=== PATIENT | female | born 1985 | race Asian ===

== ENCOUNTER 2017-11-12 22:12 | Emergency (ER) | payer MEDICAID ==
[2017-11-12 23:03] LABS: BILIRUBIN,URINE NEGATIVE (NEGATIVE); GLUCOSE, URINE (UA) NEGATIVE (NEGATIVE); KETONES,URINE (UA) NEGATIVE (NEGATIVE); LEUKOCYTE ESTERASE, URINE NEGATIVE (NEGATIVE); NITRITE,URINE NEGATIVE (NEGATIVE); OCCULT BLOOD,URINE TRACE-INTA (NEGATIVE); PH,URINE 6.5 PH (5.0-7.5); PROTEIN,URINE NEGATIVE (NEGATIVE); UROBILINOGEN,URINE 0.2 (NORMAL) E.U./dL (NORMAL)
[2017-11-12 23:04] LABS: CLARITY,URINE CLEAR (CLEAR)
[2017-11-12 23:05] LABS: HCG UR QUAL NEGATIVE
[2017-11-12] MEDS ORDERED: KETOROLAC 60 MG/2 ML VIAL IVP STA (23:05)
[2017-11-12] MEDS ORDERED: diphenhydrAMINE INJ 50 MG/ML VIAL IVP STA (23:05)
[2017-11-12] MEDS ORDERED: SODIUM CHLORIDE 0.9% 1,000 ML IV ONE (23:05)
[2017-11-12] MEDS ORDERED: METOCLOPRAMIDE 10 MG/2 ML VIAL IVP STA (23:05)
--- NOTE | 2017-11-13 00:13 | ED Physician Documentation ---
PD HPI HEADACHE - Stated complaint Stated Complaint: MIGRAINE - Chief complaint Chief Complaint: Neuro - History obtained from History obtained from: Patient - History of Present Illness Timing - onset: How many days ago (5) Timing - onset during: Rest Timing - details: Gradual onset, Still present Location: Front, Global Quality: Aching Associated symptoms: Nausea. No: Fever, Stiff neck, Vomiting Improved by: Rest, Dark room Worsened by: Light, Noise Similar symptoms before: Work up / diagnostics Recently seen: Not recently seen - Additional information Additional information: Patient is a 31 year old female with a history of migraines who is presenting to the emergency department for headache. Patient states that it started slowly and has been going on for the last 5 days. patient took her excedrin migraine with little help. Review of Systems Ten Systems: 10 systems reviewed and negative Constitutional: denies: Fever, Chills Eyes: reports: Photophobia GI: reports: Nausea. denies: Vomiting Musculoskeletal: reports: Neck pain. denies: Back pain, Extremity pain, Joint pain Neurologic: reports: Headache. denies: Head injury, LOC Immunocompromised: denies: Immunocompromised PD PAST MEDICAL HISTORY - Past Medical History Cardiovascular: None Respiratory: None Endocrine/Autoimmune: None GI: None BUSINESS OFFICE SPECIALIST: None : None HEENT: None Psych: None Musculoskeletal: None Derm: None - Past Surgical History Past Surgical History: Yes /BUSINESS OFFICE SPECIALIST: section - Present Medications Home Medications: Ambulatory Orders Medication Instructions Recorded Confirmed No Known Home Medications [No 11/12/17 11/12/17 Known Home Medications] - Allergies Allergies/Adverse Reactions: Allergies Allergy/AdvReac Type Severity Reaction Status Date / Time No Known Drug Allergies Allergy Verified 11/12/17 22:23 - Social History Does the pt smoke?: Yes Smoking Status: Current every day smoker Does the pt drink ETOH?: No Does the pt have substance abuse?: No - Immunizations Immunizations are current?: Yes PD ED PE NORMAL - Vitals Vital signs reviewed: Yes - General General: Alert and oriented X 3, Well developed/nourished - HEENT HEENT: Atraumatic, PERRL - Cardiac Cardiac: RRR - Respiratory Respiratory: No respiratory distress - Derm Derm: Normal color - Extremities Extremities: No deformity - Neuro Neuro: Alert and oriented X 3, in home caregiver 2-12 intact, No motor deficit, No sensory deficit, Normal speech Eye Opening: Spontaneous Results - Vitals Vitals: Vital Signs - 24 hr 11/12/17 11/13/17 22:21 00:17 Temperature 36.2 C L 98.1 C H Heart Rate 75 56 L Respiratory 17 14 Rate Blood Pressure 133/95 H 105/73 O2 Saturation 99 Oxygen O2 Source Room air - Labs Labs: Laboratory Tests 11/12/17 23:00 Urine Color YELLOW Urine Clarity CLEAR Urine pH 6.5 Ur Specific [place] <=1.005 Urine Protein NEGATIVE Urine Glucose (UA) NEGATIVE Urine Ketones NEGATIVE Urine Occult Blood TRACE-INTA Urine Nitrite NEGATIVE Urine Bilirubin NEGATIVE Urine Urobilinogen 0.2 (NORMAL) Ur Leukocyte Esterase NEGATIVE Ur Microscopic Review NOT INDICATED Urine Culture Comments NOT INDICATED Urine HCG, Qual NEGATIVE PD MEDICAL DECISION MAKING - ED course Complexity details: reviewed old records, reviewed results, re-evaluated patient , considered differential, d/w patient ED course: Patient was seen and examined at bedside. urine was collected and patient was not . Patient was treated with IV fluids, toradol, reglan and benadryl with resolution of her headache. While serious etiologies of patient's headache were considered they were unlikely. Patient had no meningeal sign, or neurological deficit. Patient was stable for discharge with outpatient follow up. - Sepsis Event Vital Signs: Vital Signs - 24 hr 11/12/17 11/13/17 22:21 00:17 Temperature 36.2 C L 98.1 C H Heart Rate 75 56 L Respiratory 17 14 Rate Blood Pressure 133/95 H 105/73 O2 Saturation 99 Oxygen O2 Source Room air Departure - Departure Disposition: 01 Home, Self Care Clinical Impression: Migraine Condition: Good Instructions: ED Headache Migraine Follow-Up: primary,care provider [Other] - Within 3 Days Comments: Two of the biggest triggers for headaches are dehydration and lack of sleep. It is important that you stay well hydrated and get plenty of rest. You should follow up with your doctor if your symptoms become more frequent or last longer. You may return to the emergency department at any time for new, worsening or uncontrollable symptoms.
[2017-11-13 01:39] VITALS: BP 97/64
== END 2017-11-13 01:40 | disposition home or self-care (01) ==
LOC: ED 22:12
DX: G43.909 Migraine, unspecified, not intractable, without status migrainosus (principal); F17.200 Nicotine dependence, unspecified, uncomplicated
CPT/HCPCS: 81003; 81025; 96374; 96375; 99283; 99284; J1200; J2765; 81001; 87086

== ENCOUNTER 2018-01-01 20:11 | Emergency (ER) | payer MEDICAID ==
--- NOTE | 2018-01-01 20:37 | ED Physician Documentation ---
PD HPI CHEST PAIN - Stated complaint Stated Complaint: CP/UPPER BACK PX - Chief complaint Chief Complaint: Cardiac - History obtained from History obtained from: Patient - History of Present Illness Timing - onset: Enter time (19:00), Today Timing - onset during: Sleep Timing - details: Abrupt onset Pain level now: 7 Quality: Pressure, Tightness Location: Substernal Radiation: Back, Other (bilateral shoulders) Improved by: Nothing Worsened by: Other (no exacerbating factors) Associated symptoms: Shortness of air. No: Diaphoresis, Nausea, Vomiting, Feeling faint / dizzy, General Weakness, Palpitations, Cough Similar symptoms before: Has not had sx before Recently seen: Not recently seen Review of Systems Constitutional: denies: Fever, Chills, Sweats Cardiac: reports: Chest pain / pressure. denies: Palpitations, Pedal edema, Calf pain Respiratory: reports: Dyspnea. 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 : None HEENT: None Psych: None Musculoskeletal: None Derm: None - Past Surgical History Past Surgical History: Yes General: Other /ROLLER MILL TENDER: section, Other - Present Medications Home Medications: Ambulatory Orders Medication Instructions Recorded Confirmed No Known Home Medications 11/12/17 11/12/17 - Allergies Allergies/Adverse Reactions: Allergies Allergy/AdvReac Type Severity Reaction Status Date / Time No Known Drug Allergies Allergy Verified 01/01/18 20:27 - Social History Does the pt smoke?: Yes Smoking Status: Current every day smoker Does the pt drink ETOH?: No Does the pt have substance abuse?: No - Immunizations Immunizations are current?: Yes - POLST Patient has POLST: No PD ED PE NORMAL - Vitals Vital signs reviewed: Yes - General General: Alert and oriented X 3, No acute distress, Well developed/nourished - Cardiac Cardiac: RRR, No murmur, No gallop, No rub - Respiratory Respiratory: No respiratory distress, Clear bilaterally - Abdomen Abdomen: Soft, Non tender - Derm Derm: Normal color, Warm and dry - Extremities Extremities: No edema Results - Vitals Vitals: Vital Signs - 24 hr 01/01/18 01/01/18 01/01/18 20:24 20:40 21:27 Temperature 37.0 C Heart Rate 96 91 76 Respiratory 16 16 16 Rate Blood Pressure 120/81 H 114/74 102/73 O2 Saturation 100 99 95 01/01/18 01/01/18 21:56 22:14 Temperature Heart Rate 76 Respiratory 15 16 Rate Blood Pressure 107/79 O2 Saturation 98 Oxygen O2 Source Room air - EKG (time done) No standard instances Rate: Rate (enter#) (92) Rhythm: NSR [place]: Normal Intervals: Normal [place] QRS: Normal Ischemia: Normal ST segments - Labs Labs: Laboratory Tests 01/01/18 01/01/18 01/01/18 21:15 21:15 21:15 WBC 4.6 L RBC 4.18 L Hgb 14.1 Hct 39.7 MCV 95.0 MCH 33.8 H MCHC 35.6 RDW 11.8 L Plt Count 272 MPV 7.1 L Neut # (Auto) 2.1 Lymph # (Auto) 2.0 [place] # (Auto) 0.5 Eos # (Auto) 0.1 Baso # (Auto) 0.0 Absolute Nucleated RBC 0.00 Nucleated RBC % 0.0 Sodium 139 Potassium 3.8 Chloride 105 Carbon Dioxide 26 Anion Gap 8.0 BUN 8 Creatinine 0.5 Estimated GFR (MDRD) 145 Glucose 85 Calcium 9.5 Troponin I < 0.04 - Rads (name of study) chest xray Radiology: Prelim report reviewed, See rad report PD MEDICAL DECISION MAKING - ED course Complexity details: reviewed results, re-evaluated patient, considered diffe rential, d/w patient ED course: PERC score of zero. Departure - Departure Disposition: 01 Home, Self Care Clinical Impression: Chest pain Condition: Good Instructions: ED Chest Pain Atypical Unkn Cause Follow-Up: [facility] [Provider Group] [facility] [Provider Group] Forms: Activity restrictions Discharge Date/Time: 01/01/18 22:15
[2018-01-01] MEDS ORDERED: KETOROLAC 60 MG/2 ML VIAL IM STA (20:59)
[2018-01-01 21:22] LABS: EOSINOPHILS # (AUTO) 0.1 10^3/uL (0.0-0.7); EOSINOPHILS % (AUTO) 1.3 %; HGB - HEMOGLOBIN 14.1 g/dL (12.0-16.0); LYMPHOCYTES % (AUTO) 42.6 %; MEAN CORPUSCULAR HEMOGLOBIN 33.8 pg (27.0-31.0); MEAN CORPUSCULAR HGB CONC 35.6 g/dL (32.0-36.0); MEAN PLATELET VOLUME 7.1 fL (7.9-10.8); MONOCYTES # (AUTO) 0.5 10^3/uL (0.0-1.0); MONOCYTES % (AUTO) 10.8 %; NEUTROPHILS # (AUTO) 2.1 10^3/uL (1.5-6.6); NEUTROPHILS % (AUTO) 44.3 %; PLT - PLATELET COUNT 272 10^3/uL (130-450); RED BLOOD COUNT 4.18 10^6/uL (4.20-5.40); RED CELL DISTRIBUTION WIDTH 11.8 % (12.0-15.0); WHITE BLOOD COUNT 4.6 x10^3/uL (4.8-10.8)
--- NOTE | 2018-01-01 21:26 | XRAY Report ---
Reason: chest pain Procedure Date: 01/01/2018 Accession Number: [id number] / [id number] Procedure: XR - Chest 2 View X-Ray CPT Code: 13582 FULL RESULT: EXAM: CHEST RADIOGRAPHY EXAM DATE: 01/01/2018 09:10 PM. CLINICAL HISTORY: Chest pain. COMPARISON: None. TECHNIQUE: 2 views. FINDINGS: Lungs/Pleura: No focal opacities evident. No pleural effusion. No pneumothorax. Normal volumes. Mediastinum: Heart and mediastinal contours are unremarkable. Other: None. IMPRESSION: Normal 2-view chest radiography. RADIA
[2018-01-01 21:34] LABS: CALCIUM 9.5 mg/dL (8.5-10.3); CREATININE 0.5 mg/dL (0.4-1.0)
[2018-01-01 21:56] VITALS: BP 107/79
== END 2018-01-01 22:15 | disposition home or self-care (01) ==
LOC: ED 20:11
DX: R07.9 Chest pain, unspecified (principal); F17.200 Nicotine dependence, unspecified, uncomplicated
CPT/HCPCS: 36415; 71046; 80048; 84484; 85025; 93005; 96372; 99283

== ENCOUNTER 2018-04-14 20:44 | Emergency (ER) | payer MEDICAID ==
[2018-04-14 21:06] LABS: BILIRUBIN,URINE NEGATIVE (NEGATIVE); GLUCOSE, URINE (UA) NEGATIVE (NEGATIVE); KETONES,URINE (UA) NEGATIVE (NEGATIVE); LEUKOCYTE ESTERASE, URINE LARGE (NEGATIVE); NITRITE,URINE NEGATIVE (NEGATIVE); OCCULT BLOOD,URINE LARGE (NEGATIVE); PROTEIN,URINE 100 mg/dL (NEGATIVE); UROBILINOGEN,URINE 0.2 (NORMAL) E.U./dL (NORMAL)
[2018-04-14 21:10] LABS: CLARITY,URINE CLOUDY (CLEAR)
[2018-04-14 21:10] LABS: HCG UR QUAL NEGATIVE
[2018-04-14 21:14] LABS: RBC,URINE TNTC /HPF (0-5)
[2018-04-14 21:15] LABS: BACTERIA,URINE Many /HPF (None Seen); SQUAMOUS EPITHELIAL CELL,UR NONE SEEN (<= Few); YEAST,URINE PRESENT
[2018-04-14] MEDS ORDERED: HYDROcod/ACET 5/325 Prepack 4 PO STA (22:16)
[2018-04-14] MEDS ORDERED: CIPROFLOXACIN 250 MG TABLET PO STA (22:16)
--- NOTE | 2018-04-14 22:18 | ED Physician Documentation ---
PD HPI FEMALE - Stated complaint Stated Complaint: FEMALE - Chief complaint Chief Complaint: UTI - History obtained from History obtained from: Patient - History of Present Illness Timing - onset: Other (2 days of urinary frequency and dysuria with nausea and left flank pain but no fevers.) Review of Systems Constitutional: denies: Fever, Chills GI: denies: Abdominal Pain, Nausea, Vomiting : reports: Dysuria, Frequency PD PAST MEDICAL HISTORY - Past Medical History Cardiovascular: None Respiratory: None Neuro: Migraines Endocrine/Autoimmune: None GI: None DIGITAL ASSOCIATE: None : None HEENT: None Psych: None Musculoskeletal: None Derm: None - Past Surgical History Past Surgical History: Yes General: Other /DIGITAL ASSOCIATE: section, Other - Present Medications Home Medications: Ambulatory Orders Medication Instructions Recorded Confirmed Ciprofloxacin HCl [Cipro] 500 mg PO BID #14 tablet 04/14/18 Hydrocodone/Acetaminophen 1 - 2 each PO Q6H PRN #14 tablet 04/14/18 [Hydrocodon-Acetaminophen 5-325] - Allergies Allergies/Adverse Reactions: Allergies Allergy/AdvReac Type Severity Reaction Status Date / Time No Known Drug Allergies Allergy Verified 04/14/18 20:53 - Social History Does the pt smoke?: Yes Smoking Status: Current every day smoker Does the pt drink ETOH?: No Does the pt have substance abuse?: No - Immunizations Immunizations are current?: Yes - POLST Patient has POLST: No PD ED PE NORMAL - Vitals Vital signs reviewed: Yes - General General: Alert and oriented X 3, No acute distress - Abdomen Abdomen: Soft, Non tender - Back Back: Other (Mild left CVA tenderness) - Neuro Neuro: Alert and oriented X 3, Normal speech - Psych Psych: Normal mood, Normal affect Results - Vitals Vitals: Vital Signs - 24 hr 04/14/18 20:51 Temperature 36.0 C L Heart Rate 97 Respiratory 16 Rate Blood Pressure 121/79 O2 Saturation 100 Oxygen O2 Source Room air - Labs Labs: Laboratory Tests 04/14/18 04/14/18 20:53 20:59 Urine Color DARK YELLOW Urine Clarity CLOUDY Urine pH 6.0 Ur Specific [place] >=1.030 H >=1.030 H Urine Protein 100 H Urine Glucose (UA) NEGATIVE Urine Ketones NEGATIVE Urine Occult Blood LARGE H Urine Nitrite NEGATIVE Urine Bilirubin NEGATIVE Urine Urobilinogen 0.2 (NORMAL) Ur Leukocyte Esterase LARGE H Urine RBC TNTC H Urine WBC 11-25 H Ur Squamous Epith Cells NONE SEEN Urine Bacteria Many H Urine Yeast PRESENT Ur Microscopic Review INDICATED Urine Culture Comments INDICATED Urine HCG, Qual NEGATIVE Departure - Departure Disposition: 01 Home, Self Care Clinical Impression: Pyelonephritis Condition: Good Record reviewed to determine appropriate education?: Yes Instructions: Pyelonephritis Dc Prescriptions: Ciprofloxacin HCl [Cipro] 500 mg PO BID #14 tablet Hydrocodone/Acetaminophen [Hydrocodon-Acetaminophen 5-325] 1 - 2 each PO Q6H PRN #14 tablet PRN Reason: pain Comments: We will culture your urine, the results should be done in 48-72 hours. If an antibiotic change is necessary we will call you. Return if worse in the meantime, especially if you develop increasing flank pain, fevers, or cannot keep down the medication. Forms: Activity restrictions
[2018-04-14 22:35] VITALS: BP 102/82
== END 2018-04-14 22:35 | disposition home or self-care (01) ==
LOC: ED 20:44
DX: N12 Tubulo-interstitial nephritis, not specified as acute or chronic (principal); F17.200 Nicotine dependence, unspecified, uncomplicated
CPT/HCPCS: 81001; 81025; 87086; 99283; A9270; 81003; 87181

== ENCOUNTER 2018-05-03 16:24 | Emergency (ER) | payer OTHER, MEDICAID ==
[2018-05-03 16:42] VITALS: BP 124/87
[2018-05-03] MEDS ORDERED: CYCLOBENZAPRINE 10 MG TABLET PO STA (16:58)
[2018-05-03] MEDS ORDERED: IBUPROFEN 800 MG TABLET PO STA (16:58)
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
== END 2018-05-03 17:25 | disposition home or self-care (01) ==
LOC: ED 16:24
DX: S16.1XXA Strain of muscle, fascia and tendon at neck level, initial encounter (principal); V43.52XA Car driver injured in collision with other type car in traffic accident, initial encounter; Y92.481 Parking lot as the place of occurrence of the external cause; F17.200 Nicotine dependence, unspecified, uncomplicated
CPT/HCPCS: 99283; A9270

== ENCOUNTER 2018-06-06 00:29 | Emergency (ER) | payer MEDICAID ==
[2018-06-06 00:39] VITALS: BP 133/89
[2018-06-06] MEDS ORDERED: DEXAMETHASONE 10 MG/ML VIAL PO STA (01:17)
--- NOTE | 2018-06-06 01:20 | ED Physician Documentation ---
PD HPI HEENT - Stated complaint Stated Complaint: HARD TO SWALLOW - Chief complaint Chief Complaint: Heent - History obtained from History obtained from: Patient - History of Present Illness Timing - onset: How many days ago (4) Timing - duration: Days (4) Timing - details: Gradual onset, Still present Location: Throat Improves: Medication Worsens: Swalllowing Associated symptoms: Congestion, Rhinorrhea, Cough Similar symptoms before: Has not had sx before Recently seen: Not recently seen - Additional information Additional information: 32-year-old previously well female is developed a sore throat about 4 days ago. She is missed some work with this she is having some trouble swallowing because of the pain in her throat. She has been drinking lots of extra fluids and she does not usually drink fluids. Review of Systems Constitutional: reports: Fever, Chills, Myalgias Eyes: denies: Decreased vision Ears: denies: Ear pain Nose: reports: Rhinorrhea / runny nose, Congestion Throat: reports: Sore throat Cardiac: denies: Chest pain / pressure, Palpitations Respiratory: reports: Cough. 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, Other - Present Medications Home Medications: Ambulatory Orders Medication Instructions Recorded Confirmed Ciprofloxacin HCl [Cipro] 500 mg PO BID #14 tablet 04/14/18 Hydrocodone/Acetaminophen 1 - 2 each PO Q6H PRN #14 tablet 04/14/18 [Hydrocodon-Acetaminophen 5-325] Cyclobenzaprine [Flexeril] 10 mg PO TID PRN #20 tablet 05/03/18 Ibuprofen [Motrin] 800 mg PO Q8H PRN #30 tablet 05/03/18 Amox/Clav 875/125 [Augmentin] 1 each PO Q12H #20 tablet 06/06/18 - Allergies Allergies/Adverse Reactions: Allergies Allergy/AdvReac Type Severity Reaction Status Date / Time No Known Drug Allergies Allergy Verified 06/06/18 00:39 - Social History Does the pt smoke?: Yes Smoking Status: Current every day smoker Does the pt drink ETOH?: No Does the pt have substance abuse?: No - Immunizations Immunizations are current?: Yes - POLST Patient has POLST: No PD ED PE NORMAL - Vitals Vital signs reviewed: Yes (tachy and hypertensive ) - General General: Alert and oriented X 3, No acute distress, Well developed/nourished - HEENT HEENT: Atraumatic, PERRL, EOMI, Other (The left TM is inflamed with peripheral distortion of the landmarks. The right is clear the pharynx is with more swelling on the left side but generally the swelling is mild ) - Neck Neck: Supple, no meningeal sign, No bony TTP - Cardiac Cardiac: RRR, No murmur - Respiratory Respiratory: No respiratory distress, Clear bilaterally - Abdomen Abdomen: Soft, Non tender - Back Back: No CVA TTP, No spinal TTP - Derm Derm: Normal color, Warm and dry, No rash - Extremities Extremities: No deformity, No edema - Neuro Neuro: Alert and oriented X 3, cost accounting clerk 2-12 intact, No motor deficit, No sensory deficit, Normal speech Eye Opening: Spontaneous Motor: Obeys Commands Verbal: Oriented GCS Score: 15 - Psych Psych: Normal mood, Normal affect Results - Vitals Vitals: Vital Signs - 24 hr 06/06/18 06/06/18 00:38 01:26 Temperature 36.9 C Heart Rate 119 H Respiratory 17 16 Rate Blood Pressure 133/89 H O2 Saturation 96 Oxygen O2 Source Room air - Labs Labs: Laboratory Tests 06/06/18 00:40 Group A Strep Rapid Negative PD MEDICAL DECISION MAKING - ED course Complexity details: considered differential, d/w patient ED course: 32-year-old female with a sore throat has left otitis on examination and 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 Departure - Departure Disposition: 01 Home, Self Care Clinical Impression: Otitis media Qualifiers: Otitis media type: suppurative Chronicity: acute Laterality: left Recurrence: not specified as recurrent Spontaneous tympanic membrane rupture: without spontaneous rupture Qualified Code(s): H66.002 - Acute suppurative otitis media without spontaneous rupture of ear drum, left ear Condition: Stable Instructions: ED Otitis Media Acute Adult Follow-Up: [facility] [Provider Group] Prescriptions: Amox/Clav 875/125 [Augmentin] 1 each PO Q12H #20 tablet Forms: Activity restrictions Discharge Date/Time: 06/06/18 01:29
[2018-06-06] MEDS ORDERED: AMOX/CLAV 875 MG/125 MG TABLET PO STA (01:23)
[2018-06-06] MEDS ORDERED: CHERRY SYRUP 10 ML UDC PO ONE (01:27)
== END 2018-06-06 01:29 | disposition home or self-care (01) ==
LOC: ED 00:29
DX: H66.002 Acute suppurative otitis media without spontaneous rupture of ear drum, left ear (principal); J02.9 Acute pharyngitis, unspecified; F17.200 Nicotine dependence, unspecified, uncomplicated
CPT/HCPCS: 87070; 87430; 99283; A9270

== ENCOUNTER 2018-11-08 00:50 | Emergency (ER) | payer MEDICAID ==
[2018-11-08 01:27] LABS: BASOPHILS % (AUTO) 0.2 %; EOSINOPHILS # (AUTO) 0.1 10^3/uL (0.0-0.7); EOSINOPHILS % (AUTO) 1.1 %; LYMPHOCYTES # (AUTO) 1.8 10^3/uL (1.5-3.5); LYMPHOCYTES % (AUTO) 27.7 %; MEAN CORPUSCULAR HEMOGLOBIN 32.4 pg (27.0-31.0); MEAN CORPUSCULAR HGB CONC 33.8 g/dL (32.0-36.0); MEAN PLATELET VOLUME 9.4 fL (7.9-10.8); MONOCYTES # (AUTO) 0.4 10^3/uL (0.0-1.0); MONOCYTES % (AUTO) 6.2 %; NEUTROPHILS # (AUTO) 4.3 10^3/uL (1.5-6.6); NEUTROPHILS % (AUTO) 64.5 %; PLT - PLATELET COUNT 226 10^3/uL (130-450); RED BLOOD COUNT 4.01 10^6/uL (4.20-5.40); RED CELL DISTRIBUTION WIDTH 11.6 % (12.0-15.0); WHITE BLOOD COUNT 6.6 x10^3/uL (4.8-10.8)
[2018-11-08 01:41] LABS: ALBUMIN 4.3 g/dL (3.2-5.5); ALBUMIN/GLOBULIN RATIO 1.1 (1.0-2.2); BILIRUBIN,TOTAL 0.6 mg/dL (0.2-1.0); CALCIUM 9.1 mg/dL (8.5-10.3); CREATININE 0.8 mg/dL (0.4-1.0); TOTAL PROTEIN 8.1 g/dL (6.7-8.2)
[2018-11-08 02:04] LABS: BILIRUBIN,URINE NEGATIVE (NEGATIVE); GLUCOSE, URINE (UA) NEGATIVE (NEGATIVE); KETONES,URINE (UA) NEGATIVE (NEGATIVE); LEUKOCYTE ESTERASE, URINE TRACE (NEGATIVE); NITRITE,URINE NEGATIVE (NEGATIVE); OCCULT BLOOD,URINE SMALL (NEGATIVE); PH,URINE 6.5 PH (5.0-7.5); PROTEIN,URINE NEGATIVE (NEGATIVE); UROBILINOGEN,URINE 0.2 (NORMAL) E.U./dL (NORMAL)
[2018-11-08 02:06] LABS: CLARITY,URINE CLEAR (CLEAR); HCG UR QUAL NEGATIVE
[2018-11-08 02:12] LABS: BACTERIA,URINE Rare /HPF (None Seen); RBC,URINE 0-5 /HPF (0-5); SQUAMOUS EPITHELIAL CELL,UR MOD Squamous (<= Few)
--- NOTE | 2018-11-08 02:22 | ED Physician Documentation ---
PD HPI BACK PAIN - Stated complaint Stated Complaint: BACK, LOW ABD PAIN - Chief complaint Chief Complaint: Abd Pain - History obtained from History obtained from: Patient - History of Present Illness Timing - onset: How many days ago (4-5) Timing - duration: Days Timing - details: Gradual onset, Waxing and waning Pain level now: 8 Location: Lower, Other (bilateral) Quality: Pain Associated symptoms: No: Fever, Weakness, Numbness Improves with: Nothing Worsened by: Other (urinating) Recently seen: Not recently seen - Additional information Additional information: c/o bilateral lower back pain and lower abdominal pain (L>R) with dysuria x 4-5 days. "I think it might be a urinary tract infection or a kidney infection" (per patient) Review of Systems Constitutional: denies: Fever, Chills, Sweats Cardiac: reports: Reviewed and negative Respiratory: reports: Reviewed and negative GI: reports: Abdominal Pain. denies: Nausea, Vomiting, Constipation, Diarrhea : reports: Dysuria. denies: Frequency Skin: denies: Rash Musculoskeletal: reports: Back pain PD PAST MEDICAL HISTORY - Past Medical History Past Medical History: Yes Cardiovascular: None Respiratory: None Neuro: Migraines Endocrine/Autoimmune: None GI: None CLINICAL INFORMATICS SPECIALIST: None : Other HEENT: None Psych: None Musculoskeletal: None Derm: None - Past Surgical History Past Surgical History: Yes General: Other /CLINICAL INFORMATICS SPECIALIST: section, Tubal ligation, Other - Present Medications Home Medications: Ambulatory Orders Medication Instructions Recorded Confirmed Ciprofloxacin HCl [Cipro] 500 mg PO BID #14 tablet 04/14/18 Hydrocodone/Acetaminophen 1 - 2 each PO Q6H PRN #14 tablet 04/14/18 [Hydrocodon-Acetaminophen 5-325] Cyclobenzaprine [Flexeril] 10 mg PO TID PRN #20 tablet 05/03/18 Ibuprofen [Motrin] 800 mg PO Q8H PRN #30 tablet 05/03/18 Amox/Clav 875/125 [Augmentin] 1 each PO Q12H #20 tablet 06/06/18 Nitrofurantoin Monohyd/M-Cryst 100 mg PO BID #10 capsule 11/08/18 [Macrobid 100 mg Capsule] - Allergies Allergies/Adverse Reactions: Allergies Allergy/AdvReac Type Severity Reaction Status Date / Time No Known Drug Allergies Allergy Verified 11/08/18 01:11 - Social History Does the pt smoke?: Yes Smoking Status: Current every day smoker Does the pt drink ETOH?: No Does the pt have substance abuse?: No - Immunizations Immunizations are current?: Yes - POLST Patient has POLST: No PD ED PE NORMAL - Vitals Vital signs reviewed: Yes - General General: Alert and oriented X 3, No acute distress, Well developed/nourished - Cardiac Cardiac: RRR, No murmur - Respiratory Respiratory: No respiratory distress, Clear bilaterally - Abdomen Abdomen: Soft, Non tender, Non distended - Back Back: No CVA TTP - Derm Derm: Normal color, Warm and dry, No rash Results - Vitals Vitals: Vital Signs - 24 hr 11/08/18 11/08/18 01:09 02:26 Temperature 36.5 C 37.1 C Heart Rate 81 65 Respiratory 16 15 Rate Blood Pressure 115/85 H 115/83 H O2 Saturation 99 98 Oxygen O2 Source Room air - Labs Labs: Laboratory Tests 11/08/18 11/08/18 11/08/18 01:15 01:15 01:52 WBC 6.6 RBC 4.01 L Hgb 13.0 Hct 38.5 MCV 96.0 MCH 32.4 H MCHC 33.8 RDW 11.6 L Plt Count 226 MPV 9.4 Neut # (Auto) 4.3 Lymph # (Auto) 1.8 [place] # (Auto) 0.4 Eos # (Auto) 0.1 Baso # (Auto) 0.0 Absolute Nucleated RBC 0.00 Nucleated RBC % 0.0 Sodium 138 Potassium 3.6 Chloride 104 Carbon Dioxide 23 Anion Gap 11.0 BUN 11 Creatinine 0.8 Estimated GFR (MDRD) 84 L Glucose 101 H Calcium 9.1 Total Bilirubin 0.6 AST 17 ALT 10 Alkaline Phosphatase 50 Total Protein 8.1 Albumin 4.3 Globulin 3.8 Albumin/Globulin Ratio 1.1 Lipase 22 Urine Color YELLOW Urine Clarity CLEAR Urine pH 6.5 Ur Specific [place] <=1.005 Urine Protein NEGATIVE Urine Glucose (UA) NEGATIVE Urine Ketones NEGATIVE Urine Occult Blood SMALL H Urine Nitrite NEGATIVE Urine Bilirubin NEGATIVE Urine Urobilinogen 0.2 (NORMAL) Ur Leukocyte Esterase TRACE H Urine RBC 0-5 Urine WBC 0-3 Ur Squamous Epith Cells MOD Squamous H Urine Bacteria Rare Ur Microscopic Review INDICATED Urine Culture Comments NOT INDICATED Urine HCG, Qual NEGATIVE PD MEDICAL DECISION MAKING - ED course Complexity details: reviewed results, re-evaluated patient, considered d ifferential, d/w patient Departure - Departure Disposition: 01 Home, Self Care Clinical Impression: Urinary tract infection Qualifiers: Urinary tract infection type: acute cystitis Hematuria presence: without hematuria Qualified Code(s): N30.00 - Acute cystitis without hematuria Condition: Good Instructions: ED UTI Cystitis Female Prescriptions: Nitrofurantoin Monohyd/M-Cryst [Macrobid 100 mg Capsule] 100 mg PO BID #10 capsule Discharge Date/Time: 11/08/18 02:37
[2018-11-08 02:27] VITALS: BP 115/83
[2018-11-08] MEDS ORDERED: NITROFURANTOIN MACRO 100 MG CAPSULE PO STA (02:32)
== END 2018-11-08 02:37 | disposition home or self-care (01) ==
LOC: ED 00:50
DX: N30.00 Acute cystitis without hematuria (principal); F17.200 Nicotine dependence, unspecified, uncomplicated
CPT/HCPCS: 36415; 80053; 81001; 81025; 83690; 85025; 99283; 99284; A9270; 81003; 87086

== ENCOUNTER 2019-04-16 08:00 | Outpatient (CLI) | payer MEDICAID ==
[2019-04-16 22:52] LABS: CANDIDA GROUP DNA NEGATIVE (NEGATIVE); CANDIDA KRUSEI DNA NEGATIVE (NEGATIVE); TRICHOMONAS VAGINALIS DNA NEGATIVE (NEGATIVE)
== END 2019-04-16 23:59 | disposition home or self-care (01) ==
LOC: LAB.R 08:00
PROVIDERS: ATTEND Obstetrics & Gynecology
DX: N89.8 Other specified noninflammatory disorders of vagina (principal)
CPT/HCPCS: 87661; 87801

== ENCOUNTER 2019-04-19 14:09 | Outpatient (CLI) | payer MEDICAID ==
--- NOTE | 2019-04-20 16:21 | Ultrasound Report ---
Reason: DYSMENORRHEA SEVERE, MENORRHAGIA Procedure Date: 04/19/2019 Accession Number: [id number] / [id number] Procedure: US - Pelvic w/Transvaginal CPT Code: Final Report FULL RESULT: EXAM: PELVIC ULTRASOUND EXAM DATE: 04/19/2019 02:35 PM. CLINICAL HISTORY: DYSMENORRHEA SEVERE, MENORRHAGIA. COMPARISON: None. TECHNIQUE: Realtime transabdominal pelvic scan performed to identify the uterus and adnexa and as an overview of other pelvic structures, followed by transvaginal scan to provide greater detail of the uterus and adnexa, with static image documentation. FINDINGS: Uterus: 8.4 x 3.8 x 4.6 cm, volume 76.7 cc. Retroverted position. Normal overall size and echotexture. Masses: Probable fundal mural fibroid measuring 3.2 x 3.7 x 4 cm. Also seen are small dystrophic calcifications within the myometrium. Additionally, small cystic lesions are seen within the myometrium of the lower uterine segment. Endometrium: 9.6 mm. Normal. Cervix: Nabothian cysts seen in the cervix. Trace free fluid in the endocervical canal. Right Ovary: 3.2 x 2 x 2.2 cm, volume 7.3 cc. Normal echotexture and blood flow. Left Ovary: 2.9 x 1.5 x 1.9 cm, volume 4.3 cc. Normal echotexture and blood flow. Free Fluid: Mild free fluid in the cul-de-sac. Other: None. IMPRESSION: 1. Probable 4 cm fundal mural fibroid is seen. 2. Cystic lesions within the myometrium of the lower uterine segment could reflect cystic degeneration with small fibroids, or possibly adenomyosis. 3. Normal thickness of the endometrium for a premenopausal female, without focal nodules or masses. 4. Ovaries image within normal limits. 5. Mild free fluid in the cul-de-sac is likely physiologic. RADIA
== END 2019-04-19 14:10 | disposition home or self-care (01) ==
LOC: DI 14:09
PROVIDERS: ATTEND Obstetrics & Gynecology
DX: N94.6 Dysmenorrhea, unspecified (principal); N92.0 Excessive and frequent menstruation with regular cycle; N85.9 Noninflammatory disorder of uterus, unspecified
CPT/HCPCS: 76830; 76856

== ENCOUNTER 2019-05-12 14:22 | Emergency (ER) | payer MEDICAID ==
[2019-05-12 15:03] LABS: BILIRUBIN,URINE NEGATIVE (NEGATIVE); GLUCOSE, URINE (UA) NEGATIVE (NEGATIVE); KETONES,URINE (UA) NEGATIVE (NEGATIVE); LEUKOCYTE ESTERASE, URINE NEGATIVE (NEGATIVE); NITRITE,URINE NEGATIVE (NEGATIVE); OCCULT BLOOD,URINE NEGATIVE (NEGATIVE); PROTEIN,URINE NEGATIVE (NEGATIVE); UROBILINOGEN,URINE 0.2 (NORMAL) E.U./dL (NORMAL)
[2019-05-12 15:05] LABS: CLARITY,URINE CLEAR (CLEAR); HCG UR QUAL NEGATIVE
[2019-05-12 15:37] LABS: BASOPHILS % (AUTO) 0.3 %; EOSINOPHILS # (AUTO) 0.1 10^3/uL (0.0-0.7); EOSINOPHILS % (AUTO) 0.7 %; HGB - HEMOGLOBIN 13.8 g/dL (12.0-16.0); LYMPHOCYTES # (AUTO) 1.4 10^3/uL (1.5-3.5); LYMPHOCYTES % (AUTO) 18.4 %; MEAN CORPUSCULAR HEMOGLOBIN 32.8 pg (27.0-31.0); MEAN CORPUSCULAR HGB CONC 34.3 g/dL (32.0-36.0); MEAN CORPUSCULAR VOLUME 95.5 fL (81.0-99.0); MEAN PLATELET VOLUME 8.9 fL (7.9-10.8); MONOCYTES # (AUTO) 0.5 10^3/uL (0.0-1.0); MONOCYTES % (AUTO) 6.7 %; NEUTROPHILS # (AUTO) 5.5 10^3/uL (1.5-6.6); NEUTROPHILS % (AUTO) 73.5 %; PLT - PLATELET COUNT 323 10^3/uL (130-450); RED BLOOD COUNT 4.21 10^6/uL (4.20-5.40); RED CELL DISTRIBUTION WIDTH 10.9 % (12.0-15.0); WHITE BLOOD COUNT 7.5 x10^3/uL (4.8-10.8)
[2019-05-12 15:46] LABS: ALBUMIN 4.5 g/dL (3.2-5.5); ALBUMIN/GLOBULIN RATIO 0.9 (1.0-2.2); BILIRUBIN,TOTAL 0.4 mg/dL (0.2-1.0); CALCIUM 9.3 mg/dL (8.5-10.3); CREATININE 0.7 mg/dL (0.4-1.0); TOTAL PROTEIN 9.3 g/dL (6.7-8.2)
--- NOTE | 2019-05-12 15:57 | ED Physician Documentation ---
PD HPI ABD PAIN - Stated complaint Stated Complaint: ABD PX - Chief complaint Chief Complaint: Abd Pain - History obtained from History obtained from: Patient - History of Present Illness Timing - onset: How many days ago (2) Timing - duration: Days (2) Timing - details: Gradual onset, Waxing and waning (but more consistent the past 4-6 hours) Quality: Cramping, Aching, Pain Location: LUQ. No: Epigastric Radiation: No: Lower back, Left flank Improved by: No: Eating, Laying still Worsened by: Moving, Palpation. No: Eating, Breathing Associated symptoms: Nausea. No: Fever, Vomiting, Diarrhea (loose though, without blood nor melena), Constipation Similar symptoms before: Has not had sx before Review of Systems Constitutional: denies: Fever, Chills, Myalgias Nose: denies: Rhinorrhea / runny nose, Congestion Throat: denies: Sore throat Respiratory: denies: Cough GI: reports: Abdominal Pain, Nausea, Diarrhea (loose). denies: Vomiting, Constipation, Bloody / black stool : denies: Dysuria, Frequency, Discharge, Irregular menses Skin: denies: Rash, Lesions Neurologic: denies: Near syncope PD PAST MEDICAL HISTORY - Past Medical History Past Medical History: Yes Cardiovascular: None Respiratory: None Neuro: Migraines Endocrine/Autoimmune: None GI: None TECHNICAL ACCOUNT REPRESENTATIVE: None : Other HEENT: None Psych: None Musculoskeletal: None Derm: None - Past Surgical History Past Surgical History: Yes General: Other /TECHNICAL ACCOUNT REPRESENTATIVE: section, Tubal ligation, Other - Present Medications Home Medications: Ambulatory Orders Medication Instructions Recorded Confirmed Ciprofloxacin HCl [Cipro] 500 mg PO BID #14 tablet 04/14/18 Hydrocodone/Acetaminophen 1 - 2 each PO Q6H PRN #14 tablet 04/14/18 [Hydrocodon-Acetaminophen 5-325] Cyclobenzaprine [Flexeril] 10 mg PO TID PRN #20 tablet 05/03/18 Ibuprofen [Motrin] 800 mg PO Q8H PRN #30 tablet 05/03/18 Amox/Clav 875/125 [Augmentin] 1 each PO Q12H #20 tablet 06/06/18 Nitrofurantoin Monohyd/M-Cryst 100 mg PO BID #10 capsule 11/08/18 [Macrobid 100 mg Capsule] Hydrocodone/Acetaminophen [[place] 1 each PO Q6H PRN #12 tablet 05/12/19 5-325 Tablet] Naproxen 375 mg PO BID #20 tablet 05/12/19 Ondansetron Odt [Zofran] 4 mg TL Q6H PRN #10 tablet 05/12/19 Polyethylene Glycol 3350 [Miralax] 17 gm PO BID #1 bottle 05/12/19 - Allergies Allergies/Adverse Reactions: Allergies Allergy/AdvReac Type Severity Reaction Status Date / Time No Known Drug Allergies Allergy Verified 05/12/19 14:45 - Social History Does the pt smoke?: Yes Smoking Status: Current every day smoker Does the pt drink ETOH?: No Does the pt have substance abuse?: No - Immunizations Immunizations are current?: Yes - POLST Patient has POLST: No PD ED PE NORMAL - Vitals Vital signs reviewed: Yes - General General: Alert and oriented X 3, No acute distress, Well developed/nourished - HEENT HEENT: Pharynx benign - Neck Neck: Supple, no meningeal sign, No adenopathy - Cardiac Cardiac: RRR, No murmur - Respiratory Respiratory: Clear bilaterally - Abdomen Abdomen: Normal bowel sounds, Soft, Non distended, No organomegaly, Other (tender LUQ and left mid abd with local guarding. No percussion tenderness. Right abd not tender. Suprapubic area not tender. ) - Female Female : Deferred - Rectal Rectal: Deferred - Back Back: No CVA TTP - Derm Derm: Normal color, Warm and dry - Neuro Neuro: Alert and oriented X 3, No motor deficit, Normal speech Results - Vitals Vitals: Vital Signs - 24 hr 05/12/19 05/12/19 05/12/19 14:43 16:45 19:07 Temperature 38 C H 36.7 C Heart Rate 94 80 Respiratory 18 16 16 Rate Blood Pressure 133/87 H 123/83 H O2 Saturation 100 100 Oxygen O2 Source Room air - Labs Labs: Laboratory Tests 05/12/19 05/12/19 05/12/19 14:55 15:17 15:17 WBC 7.5 RBC 4.21 Hgb 13.8 Hct 40.2 MCV 95.5 MCH 32.8 H MCHC 34.3 RDW 10.9 L Plt Count 323 MPV 8.9 Neut # (Auto) 5.5 Lymph # (Auto) 1.4 L [place] # (Auto) 0.5 Eos # (Auto) 0.1 Baso # (Auto) 0.0 Absolute Nucleated RBC 0.00 Nucleated RBC % 0.0 Sodium 140 Potassium 3.2 L Chloride 102 Carbon Dioxide 27 Anion Gap 11.0 BUN 5 L Creatinine 0.7 Estimated GFR (MDRD) 98 Glucose 78 Calcium 9.3 Total Bilirubin 0.4 AST 17 ALT 10 Alkaline Phosphatase 68 Total Protein 9.3 H Albumin 4.5 Globulin 4.8 H Albumin/Globulin Ratio 0.9 L Lipase 31 Urine Color YELLOW Urine Clarity CLEAR Urine pH 6.0 Ur Specific [place] <=1.005 Urine Protein NEGATIVE Urine Glucose (UA) NEGATIVE Urine Ketones NEGATIVE Urine Occult Blood NEGATIVE Urine Nitrite NEGATIVE Urine Bilirubin NEGATIVE Urine Urobilinogen 0.2 (NORMAL) Ur Leukocyte Esterase NEGATIVE Ur Microscopic Review NOT INDICATED Urine Culture Comments NOT INDICATED Urine HCG, Qual NEGATIVE - Rads (name of study) abd CT Radiology: Prelim report reviewed (no acute intraabd process.), EMP read contemporaneously (I though the stomach was quite full/enlarged, but report says normal gastrum. This could be giving some LUQ pain and nausea. ), See rad report PD MEDICAL DECISION MAKING - ED course Complexity details: reviewed results (CT report normal. I thought stomach was quite distended. Suggested to her to have clear liquids and minimal solids today. Full sotmach could be causing some LUQ pain and nausea. No other obvious cause at this time. ), re-evaluated patient (hurting less with pain meds. ), considered differential (eval for diverticulitis, splenic injury, or consider gastric, with the LUQ location. Has not had symptoms associated with eating. Has had some loose stools, so more likely to think intestinal. ), d/w patient Departure - Departure Disposition: 01 Home, Self Care Clinical Impression: Left sided abdominal pain Condition: Stable Record reviewed to determine appropriate education?: Yes Instructions: ED Abdominal Pain Unkn Cause Prescriptions: Hydrocodone/Acetaminophen [[place] 5-325 Tablet] 1 each PO Q6H PRN #12 tablet PRN Reason: Pain Naproxen 375 mg PO BID #20 tablet Ondansetron Odt [Zofran] 4 mg TL Q6H PRN #10 tablet PRN Reason: Nausea / Vomiting Polyethylene Glycol 3350 [Miralax] 17 gm PO BID #1 bottle Comments: There is no identified cause of the pain on the blood test urine test or CT scan. Considerations can be some pain or inflammation related to prior scar tissue or adhesions, some inflammatory condition of the intestine, stretching of the intestine from irregular stools or other possibilities. I would anticipate improvement in these with some anti-inflammatories and stool softener. Take the naproxen twice daily with little bit of food for the next several days to week. MiraLAX twice daily over the next few days as well. Ondansetron if needed for nausea. Add pain medicine if needed. Recheck if not improving readily and well over the next day or 2 and resolved over the next few days. Return sooner if other symptoms develop or worsening pain. Mostly clear liquids and soft foods for the next 12 to 24 hours. Your stomach itself did appear full on CT scan so the food does not seem to be transiting t hrough due to the pain or such. Therefore liquids only would be useful for a day. Discharge Date/Time: 05/12/19 19:07
[2019-05-12] MEDS ORDERED: ONDANSETRON 4 MG/2 ML VIAL IVP STA (16:37)
[2019-05-12] MEDS ORDERED: HYDROmorphone 1 MG/ML CARPUJECT IVP STA ×2 (16:37→18:07)
[2019-05-12] MEDS ORDERED: SODIUM CHLORIDE 0.9% 1,000 ML IV ONE (16:37)
[2019-05-12] MEDS ORDERED: KETOROLAC 15 MG/ML VIAL IVP STA (16:37)
[2019-05-12] MEDS ORDERED: IOVERSOL 320 100 ML VIAL IVP ONE ×2 (16:45→17:16)
--- NOTE | 2019-05-12 17:29 | CT Report ---
Reason: LUQ abd pain for 2 days Procedure Date: 05/12/2019 Accession Number: [id number] / [id number] Procedure: CT - Abdomen/Pelvis W CPT Code: Final Report FULL RESULT: EXAM: CT ABDOMEN AND PELVIS EXAM DATE: 05/12/2019 05:09 PM. CLINICAL HISTORY: LUQ abd pain for 2 days. COMPARISONS: None. TECHNIQUE: Routine helical CT imaging was performed through the abdomen and pelvis. IV contrast: 80 cc OPTIRAY 320. Enteric contrast: No. Reconstructions: Coronal and sagittal. In accordance with CT protocol optimization, one or more of the following dose reduction techniques were utilized for this exam: automated exposure control, adjustment of mA and/or KV based on patient size, or use of iterative reconstructive technique. FINDINGS: Lung Bases: Unremarkable. Liver: Normal. No masses. Gallbladder/Bile Ducts: Unremarkable. Spleen: Normal. Pancreas: Normal. Adrenal Glands: Normal. Kidneys: Normal. No masses or hydronephrosis. Peritoneal Cavity/Bowel: Unremarkable stomach. Normal caliber small bowel loops without signs of wall thickening or hyperemia. Appendix is probably visualized and appears normal (coronal image 19). No pericecal inflammation. No pathologically enlarged intraperitoneal or retroperitoneal nodes. Pneumoperitoneum or ascites. Pelvic Organs: Unremarkable urinary bladder distention. Uterus and ovaries appear within normal limits by CT. No pelvic ascites. No pathologically enlarged pelvic or inguinal lymph nodes. Vasculature: No aneurysms or other significant abnormality. Bones: No significant abnormality. Other: None. IMPRESSION: 1. No acute abnormality seen in the abdomen or pelvis by CT. No CT findings to explain acute abdominal pain. RADIA
[2019-05-12] MEDS ORDERED: POTASSIUM CHLOR 10 MEQ/100 ML 10 MEQ/100 ML BAG IV ONE (17:34)
[2019-05-12] MEDS ORDERED: DOCUSATE SODIUM 100 MG CAPSULE PO STA (18:07)
[2019-05-12 19:09] VITALS: BP 123/83
== END 2019-05-12 19:07 | disposition home or self-care (01) ==
LOC: ED 14:22
DX: R10.12 Left upper quadrant pain (principal); F17.200 Nicotine dependence, unspecified, uncomplicated
CPT/HCPCS: 36415; 74177; 80053; 81003; 81025; 83690; 85025; 96361; 96365; 96375; 96376; 99284; A9270; J1170; Q9967; 81001; 87086

== ENCOUNTER 2019-10-14 08:00 | Outpatient (CLI) | payer MEDICAID | END 2019-10-14 08:01 | disposition home or self-care (01) | LOC: LAB.R 08:00 | PROVIDERS: ATTEND Nurse Practitioner Family | DX: R31.9 Hematuria, unspecified (principal) | CPT/HCPCS: 87086; 87181 ==